=== PATIENT | female | born 1970 | race Caucasian/White ===

== ENCOUNTER 2020-08-24 09:39 | Emergency (ER) | payer SELFPAY ==
--- NOTE | ~2020-08-24 | XR_ITS ---
EXAMINATION: XR chest 1V portable DATE: 08/24/2020 10:37 INDICATION: Shortness of breath. COVID-19 positive. TECHNIQUE: A single frontal view of the chest was obtained. COMPARISON: None. FINDINGS: The chest demonstrates clear lungs without pneumonia, pleural effusion, or pneumothorax. Th e heart size is normal. IMPRESSION: 1. No acute cardiopulmonary disease. Reviewed, dictated and finalized at location B. [facility]
--- NOTE | 2020-08-24 09:52 | ECG_ITS ---
Measurements Intervals [place] Rate: 86 P: 55 VT: 220 QRS: -25 QRSD: 91 T: 41 QT: 360 QTc: 432 Interpretive Statements SINUS RHYTHM WITH FIRST DEGREE AV BLOCK ABNORMAL ECG Electronically Signed On 08-24-2020 12:07:29 COUNTERSINKER by Tyron Zeng D.O.
[2020-08-24 09:55] VITALS: BP 164/95; PULSE 108; RESP 12; TEMP 36.9; O2SAT 98
[2020-08-24 09:59] VITALS: PULSE 108
[2020-08-24 10:08] VITALS: O2SAT 98
[2020-08-24 10:12] LABS: Basophils Percent Auto 0.8 % (0.2-1.2); Eosinophils Percent Auto 0.8 % (0-4.4); Hematocrit 42.7 % (37.0-47.0); Hemoglobin 14.9 g/dL (12.0-15.0); Immature Granulocyte Absolute 0.01 K/mm3 (0.00-0.031); Immature Granulocyte Percent A 0.3 % (0-0.5); Lymphocytes Percent Auto 16.2 % (18.3-44.2); Mean Corpuscular HGB Conc 34.9 g/dl (32-36); Mean Corpuscular Hemoglobin 33.1 pg (26-34); Mean Corpuscular Volume 94.9 fl (80-100); Mean Platelet Volume 9.3 fl (7.4-10.4); Monocytes Absolute Auto 0.5 K/mm3 (0.1-0.6); Monocytes Percent Auto 12.1 % (2.6-8.5); Neutrophils Absolute Auto 2.6 K/mm3 (1.3-6.7); Neutrophils Percent Auto 69.8 % (45.5-73.1); Platelet Count Result 158 k/mm3 (150-375); Red Cell Distribution Width 14.7 % (11.5-14.5); White Blood Count 3.7 K/mm3 (4.5-10.0)
[2020-08-24 10:26] LABS: Ethanol 120 mg/dL (<10)
[2020-08-24 10:28] LABS: D Dimer 0.35 ug/mL (<0.48)
[2020-08-24] MEDS: ONDANSETRON INJ 4 MG/2 ML VIAL IV PUSH ×2 (10:33→11:52)
[2020-08-24] MEDS: SODIUM CHLORIDE 0.9% IV 1,000 ML 999 ML IV CONT (10:33)
[2020-08-24 10:47] LABS: Alanine Aminotransferase 35 U/L (4-35); Albumin Level 4.6 g/dL (3.5-5.1); Alkaline Phosphatase 127 U/L (38-126); Anion Gap 14 mmol/L (8-16); Aspartate Amino Transferase 80 U/L (14-36); Bilirubin,Total 0.7 mg/dL (0.2-1.3); Blood Urea Nitrogen 7 mg/dL (7-17); Calcium 9.2 mg/dL (8.4-10.2); Carbon Dioxide 21 mmol/L (22-30); Chloride 107 mmol/L (98-107); Estimated CRCL calculation 60 ml/min; Estimated Glomerular Filt Rate > 60; Glucose 109 mg/dL (65-105); Potassium 3.5 mmol/L (3.4-5.0); Sodium 142 mmol/L (137-145)
--- NOTE | 2020-08-24 10:47 | PC.NURSE ---
PT STATES UNABLE TO PROVIDE CLEAN CATCH U/A AT THIS TIME, WILL TRY AGAIN LATER. GIVEN CALL LIGHT, FLUIDS INFUSING.
[2020-08-24 10:49] VITALS: BP 149/93; PULSE 84; RESP 15; O2SAT 99
[2020-08-24 10:55] LABS: Troponin I < 0.012 ng/mL (0.000-0.034)
--- NOTE | 2020-08-24 10:55 | ED.GENADULT ---
HPI - General Adult General Chief complaint: Shortness of Breath/Dyspnea Stated complaint: covid +, sob Time Seen by Provider: 08/24/20 09:46 Source: patient Mode of arrival: ambulatory Limitations: no limitations History of Present Illness HPI narrative: Patient presents with multiple complaints being feeling like she has had persistent shortness of breath since August 06 when she was diagnosed with Covid. Patient states that she felt that she should be better at this point and still notices some shortness of breath with exertion. Patient denies chest pain or pain with inspiration. 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 Patient states that she is anxious and has run out of her Ativan. Patient states that she has not been taking her diuretics as she has had some nausea and vomiting over the past few days and was concerned that they were probably worsening dehydration. Related Data Allergies Allergy/AdvReac Type Severity Reaction Status Date / Time metoclopramide [From Reglan] Allergy Agitated Verified 08/24/20 10:32 Review of Systems Review of Systems: Narrative: CONSTITUTIONAL: Denies fever, chills, or sweats. EYES: Denies visual changes, redness, or discharge. ENT: Denies rhinorrhea, congestion, sore throat, or otalgia. CARDIOVASCULAR: Denies chest pain, palpitations, or edema. RESPIRATORY: Reports dyspnea on exertion denies cough. GASTROINTESTINAL: Denies abdominal pain, nausea, vomiting, or diarrhea. GENITOURINARY: Denies dysuria or hematuria. SKIN: Denies rash or itching. MUSCULOSKELETAL: Denies back pain, joint pain, or myalgia. NEUROLOGIC: Denies headache, numbness, dizziness, or weakness. PSYCHIATRIC: Reports anxiety PMFSH Social History Social History Gender identity (if verbalized by the patient): Female Exam Narrative: Exam Narrative: GENERAL: Well-appearing, well-nourished, and in no acute distress. HEAD: Normocephalic, atraumatic. EYES: PERRLA and EOMI. there is no yellowing of patient sclera NECK: Supple. No adenopathy or masses. Range of motion intact CHEST: Clear to auscultation. No respiratory distress. No wheezes rales or rhonchi. No tachypnea. Patient speaking without difficulty. HEART: Regular rate and rhythm. No murmur heard. Normal peripheral pulses. ABDOMEN: Soft, nontender, nondistended, normal active bowel sounds. EXTREMITIES: Normal range of motion. No edema. SKIN: Warm, dry, no rash. There is no yellowing of patient's skin NEURO: No focal deficits. Alert and oriented x3. PSYCH: Appears anxious Course Vital Signs Vital signs: Vital Signs Temperature 98.5 F 08/24/20 09:55 Pulse Rate 108 H 08/24/20 09:55 Respiratory Rate 12 08/24/20 09:55 Blood Pressure 164/95 H 08/24/20 09:55 Pulse Oximetry 98 08/24/20 09:55 Temperature 98.5 F 08/24/20 09:55 Pulse Rate 97 08/24/20 13:24 Respiratory Rate 19 08/24/20 13:24 Blood Pressure 142/89 H 08/24/20 13:24 Pulse Oximetry 97 08/24/20 13:24 Medical Decision Making [facility] Narrative Medical decision making narrative: Patient's vital signs are appropriate and her lab work is without emergent findings. Patient has been given fluid hydration and nausea medications. Patient will be given Zofran for home. Patient is requesting refill of her anxiety medications to which I declined and redirect the patient to discuss refills of her anxiety medications with her primary care. Patient does appear to possibly have UTI on urinalysis so she will be treated with Macrobid. Patient instructed to follow-up with primary care for your recheck. Patient's alcohol level was elevated-patient not in alcohol withdrawals. Patient is asking for anxiety medications in the ED. I am not giving the patient xanax or ativan in the ED. She is inebria
[2020-08-24 11:52] VITALS: BP 143/97; PULSE 75; RESP 12; O2SAT 100
[2020-08-24 11:56] LABS: Add Urine Microscopic? YES; Appearance Urine Cloudy (Clear); Bacteria Urine 4+ /hpf; Bilirubin Urine Negative (Negative); Blood Urine 1+ (Negative); Color Urine Yellow (Yellow); Glucose Urine UA Negative (Negative); Ketones Urine Negative (Negative); Leukocyte Esterase Ur 3+ LEU/UL (Negative); Mucus Urine Rare /lpf; Nitrate Urine Negative (Negative); Protein Urine 3+ mg/dL (Negative); RBC Urine 21-50 /hpf (0-2); Specific Grav Ur 1.015 (1.001-1.035); Squamous Epithelial Cell Urine Many /hpf (Few); Urobilinogen Urine Negative mg/dL (<2.0); WBC Clumps Urine Present /HPF; WBC Urine >75 /hpf
[2020-08-24 12:00] LABS: Amphetamine Screen Urine Negative (Negative); Barbiturate Screen Urine Negative (Negative); Benzodiazepines Screen Urine Negative (Negative); Cannabinoid Screen Urine Positive (Negative); Cocaine Screen Urine Negative (Negative); Methadone Screen Urine Negative (Negative); Opiate Screen Urine Negative (Negative); Phencyclidine Screen Urine Negative (Negative)
[2020-08-24 13:24] VITALS: BP 142/89; PULSE 97; RESP 19; O2SAT 97
== END 2020-08-24 13:36 | disposition home or self-care (01) ==
PROVIDERS: Physician Assistant; Emergency Provider Emergency Medicine; PCP Internal Medicine
DX: N30.00 Acute cystitis without hematuria (principal); K74.60 Unspecified cirrhosis of liver; Z86.16 Personal history of COVID-19; I44.0 Atrioventricular block, first degree
CPT/HCPCS: 36415; 71045; 80053; 80307; 81001; 84484; 85025; 85380; 87077; 87086; 87088; 87186; 93005; 96361; 96374; 96376; 99284; J2405; J7030